=== PATIENT | male | born 1945 | race Caucasian/White ===

== ENCOUNTER 2016-07-28 13:03 | Observation (INO) | payer BC ==
--- NOTE | ~2016-07-28 | OP ---
Record Of Operation [facility] [address] [place]. [address] NAME: PABLITO ASHTON : 49 STATUS : DIS Charmaine PAT#: [id number] AGE: 71 ADM/REG DATE : 07/28/16 MR#: [id number] REPORT SERV DATE: 08/12/16 DICTATED BY: NUNO NASH III DATE: 08/12/16 REPORT STATUS : Draft TRANSCRIBED BY: MODL DATE: 08/12/16 DATE OF PROCEDURE: 07/28/2016 REFERRING PHYSICIAN: None. PROCEDURAL SENIOR UX DEVELOPER: Nuno Nash M.D., [facility], [facility] INDICATIONS: Mr. Pablito Ashton is a 71-year-old, white male with four other risk factors for coronary atherosclerotic disease (i.e. family history, obesity, hypertension, hyperlipoproteinemia), known multi-vessel coronary artery disease, status post PCI with implantation of stents in the left anterior descending and right coronary artery (2007), status post PTCA of the distal portion of the right coronary artery (12/06/2012), status post one vessel mid coronary artery bypass graft surgery (08/25/2013), and asymptomatic sick sinus syndrome; who presented with unstable angina pectoris progressing to an acute non-ST segment elevation myocardial infarction. The patient was referred for cardiac catheterization and consideration of revascularization. Options, potential risks, and benefits of the procedure were discussed with the patient. The patient accepted these risks and wished to proceed. PROCEDURE DESCRIPTION: 1. Limited right iliofemoral angiogram. 2. Left heart catheterization. 3. Left ventriculogram. 4. Left and right coronary angiograms. 5. Left internal mammary angiograms. 6. Percutaneous transluminal coronary angioplasty with implantation of a 3.5 mm, 8 mm length [employer] Synergy EES in the origin of the left anterior descending coronary artery from the left main coronary artery. CONTRAST: Iopamidol 240 mL. MEDICATIONS: 1. Midazolam 4 mg intravenously, in divided doses. 2. Heparin 5000 International Unit intravenously. 3. Labetalol 40 mg intravenously. 4. Nitroglycerin 200 mcg intracoronary. 5. Ticagrelor mg orally. EQUIPMENT: 1. 4-Kosovan Cook micropuncture with stiffened cannula (RFA). 2. 0.035 inch PTFE coated, 150 cm, 3 mm J [employer] [place] guidewire. 3. 6-Kosovan, 10 cm Terumo Shelly sheath. 4. 6-Kosovan, 100 cm #4 curved left coronary artery Magalis catheter. 5. 6-Kosovan, 100 cm #4 curved right coronary artery Magalis catheter. 6. 0.035 inch PTFE coated, 260 cm, 3 mm J Cordis [place] guidewire. 7. 6-Kosovan, 100 cm Internal Mammary artery catheter. Record Of Operation [address] [place]. [address] NAME: PABLITO ASHTON : 49 STATUS : DIS Charmaine PAT#: [id number] AGE: 71 ADM/REG DATE : 07/28/16 MR#: [id number] REPORT SERV DATE: 08/12/16 DICTATED BY: NUNO NASH III DATE: 08/12/16 REPORT STATUS : Draft TRANSCRIBED BY: MODL DATE: 08/12/16 8. 6-Kosovan, 110 cm Pigtail-145 catheter (34 mL at 13 mL per second). 9. 6-Kosovan #4 curved left coronary artery Magalis Cordis [place] Brite-Tip guiding catheter. 10.6-Kosovan XBLAD 4.5 Cordis [place] Brite-Tip guiding catheter. 11.0.014 inch Hi-Torque floppy, 190 cm, extra-support Mandel Whisper steerable guidewire. 12.3.0 mm x 15 mm [employer] Emerge MR balloon dilatation catheter (10 atmospheres for a duration of 30 seconds). 13.3.5 mm x 8 mm [employer] Synergy MR stent deployment system (16 atmospheres for a duration of 60 seconds). 14.6-Kosovan Mandel Perclose ProGlide vascular closure device. COMPLICATIONS: None. RADIATION DOSE: 3118 mGy. ESTIMATED BLOOD LOSS: 30 mL. I-STAT: 280 seconds. HEMODYNAMICS DATA: Prior to left ventriculography, the central aortic pressure was 175/60 mmHg. The left ventricular pressure was 195/20 mmHg. ANGIOGRAPHIC DATA: Limited right iliofemoral angiography demonstrated luminal irregularities of the distal external iliac and common femoral arteries. The puncture site was located in the common femoral artery. The left main coronary artery was a large caliber, short, irregular vessel. There was a 25% stenosis involving the distal portion of the left main coronary artery. The left main coronary artery bifurcated into a argfxt-we-ieldb caliber left anterior descending and a ypwvnd-vb-yuovi caliber, nondominant left circumflex coronary arteries. The left anterior descending coronary artery gave rise to two major septal perforators and one large caliber diagonal branch, before supplying the left ventricular apex. The left anterior descending coronary artery was diffusely irregular. There was a radiolucent, eccentric 50% to 70% stenosis involving the origin of the left anterior descending coronary artery from the left main coronary artery. There was an eccentric, radiolucent 70% to 90% stenosis involving the distal portion of the left anterior descending coronary artery, just proximal to the anastomotic site. There was an eccentric 50% stenosis involving the distal portion of the left anterior descending coronary artery, just distal to the anastomotic site. The remainder of the left anterior descending coronary artery was free of angiographically significant obstructive epicardial coronary artery disease. The left circumflex coronary artery was a phnlsi-sy-pxmgh caliber, nondominant vessel. Left circumflex coronary artery gave rise to a small caliber first obtuse marginal branch, small caliber second obtuse marginal branch, medium caliber third obtuse marginal branch, small caliber first posterolateral segment branch, medium caliber second posterolateral segment branch, and a small caliber third posterolateral segment branch. The left circumflex Record Of Operation [address] [address] NAME: PABLITO ASHTON : 49 STATUS : DIS Charmaine PAT#: [id number] AGE: 71 ADM/REG DATE : 07/28/16 MR#: [id number] REPORT SERV DATE: 08/12/16 DICTATED BY: NUNO NASH III DATE: 08/12/16 REPORT STATUS : Draft TRANSCRIBED BY: MODShaji DATE: 08/12/16 coronary artery was diffusely irregular. The left circumflex coronary artery was free of angiographically significant obstructive epicardial coronary artery disease. The right coronary artery was a ngnoq-xt-cqqwrn caliber dominant vessel. The right coronary artery gave rise to a conus branch, small caliber right ventricular branch, medium caliber acute marginal branch and a medium caliber posterior descending coronary artery. There was an eccentric 25% to 40% stenosis involving the proximal portion of the right coronary artery, just distal to the origin of the conus branch. There was a radiolucent 90% stenosis involving the origin of the acute marginal branch from the mid portion of the right coronary artery. The right coronary artery was free of angiographically significant obstructive epicardial coronary artery disease. The Left Internal Mammary artery graft to the distal portion of the left anterior descending coronary artery was patent. The Left Internal Mammary artery graft was a large caliber vessel. There were minimal luminal irregularities. There was an eccentric 50% stenosis of the left anterior descending coronary artery, just distal to the anastomotic site. There was compromised antegrade and retrograde flow into the distal portion of the left anterior descending coronary artery. Single plane 30 degree DAVIS left ventriculography demonstrated that the left ventricle was mildly enlarged. There was antral basal hypokinesis, anterolateral hypokinesis to profound hypokinesis, and apical hypokinesis. Global left ventricular systolic function was mildly reduced. There was no mitral regurgitation. Following balloon dilatation and implantation of a 3.5 mm x 8 mm [employer] Synergy EES in the origin of the left anterior descending coronary artery, selective injections of the left coronary artery demonstrated a reduction in the stenosis to approximately 10%. There was no intraluminal radiolucency or irregularity. There was ADELINA grade III perfusion of the distal vessel. PATIENT DISPOSITION: Coronary Short Stay Unit. CONCLUSION: 1. Antral basal hypokinesis, anterolateral hypokinesis to profound hypokinesis and apical hypokinesis, with a mild reduction in global left ventricular systolic function. 2. Elevated left ventricular end-diastolic pressure. 3. Angiographically significant one-vessel coronary artery disease, involving the left anterior descending coronary artery. 4. Right dominant coronary anatomy. 5. Successful percutaneous transluminal coronary angioplasty with implantation of a 3.5 mm x 8 mm [employer] Synergy EES in the origin of the left anterior descending coronary artery from the left main coronary artery, with reduction in the stenosis to approximately 10% and ADELINA grade III perfusion of the distal vessel. RECOMMENDATION: Aspirin for life, ticagrelor for 12 months, metoprolol, lisinopril, high intensity atorvastatin, and cardiac rehabilitation program. Record Of Operation [facility] [id number] [facility] [place]. [address] NAME: PABLITO ASHTON : 49 STATUS : DIS Charmaine PAT#: [id number] AGE: 71 ADM/REG DATE : 07/28/16 MR#: [id number] REPORT SERV DATE: 08/12/16 DICTATED BY: NUNO NASH III DATE: 08/12/16 REPORT STATUS : Draft TRANSCRIBED BY: JYOTI DATE: 08/12/16 /JYOTI Nuno Nash III, M.D., [facility] / [id number] CC: Nuno Nash III, M.D., [facility]
[~2016-07-28 13:03] MED LIST: ADALAT CC60 MG PO; ALEVE220 MG PO; ASA5GR PO; ASAB PO; ASABAYER PO; CEFT2 PO; CELEXA10 PO; DIFLUNISAL500 MG PO; DIL2TAB PO; FLOMAX4 PO; FLONASE NAS; GLUCOPHXR PO; GLYNASE3 PO; HCTZ25B PO; HYDROCHLOROT12.5 MG PO; HYDROCHLOROT25 MG PO; LIPITOR20 PO; LIPITOR40 PO; LISINOPRIL40 MG PO; LOP25 PO; NITROQUICK0.4 MG SL; NITROSTAT0.4 MG SL; NTG150 SL; NXL6 PO; PLAVIX PO; PRADAXA75 MG PO; PREV30 PO; PROSCAR5 PO; PROTONIX PO; RAN500 PO; RANITIDINE300 MG PO; RESTORIL30 MG PO; SAL750 PO; ULTRAM50 PO
[2016-07-28] MEDS ORDERED: CELEBREX2 (13:28)
[2016-07-28 19:11] LABS: CK-MB 2.8 NG/ML; CPK 209 U/L (0-200)
[2016-07-29 05:53] LABS: CPK 352 U/L (0-200)
[2016-07-29 05:56] LABS: TROPONIN I 0.51 NG/ML (<0.05)
[2016-07-29] MEDS ORDERED: BRILINTA90 MG PO (12:59)
== END 2016-07-29 13:15 | disposition home or self-care (01) ==
LOC: SSU1 13:03
PROVIDERS: Internal Medicine Cardiovascular Disease
PROC: 4A023N7 Measurement of Cardiac Sampling and Pressure, Left Heart, Percutaneous Approach (ICD-10-PCS; principal; 2016-07-28)
PROC: B2131ZZ Fluoroscopy of Multiple Coronary Artery Bypass Grafts using Low Osmolar Contrast (ICD-10-PCS; 2016-07-28)
PROC: B2151ZZ Fluoroscopy of Left Heart using Low Osmolar Contrast (ICD-10-PCS; 2016-07-28)
PROC: 027034Z Dilation of Coronary Artery, One Artery with Drug-eluting Intraluminal Device, Percutaneous Approach (ICD-10-PCS; 2016-07-28)
DX: I21.4 Non-ST elevation (NSTEMI) myocardial infarction (principal); I20.0 Unstable angina; E78.00 Pure hypercholesterolemia, unspecified; I10 Essential (primary) hypertension
CPT/HCPCS: 82550 ×2; 82553 ×2; 84484; 85347; 93005 ×2; 93459; 96372; C1725; C1760; C1769; C1874; C1887; C9600; G0378; J2250; J3010; Q9967 ×3; A9270-GY